=== PATIENT | female | born 1985 | race Caucasian/White ===

== ENCOUNTER 2024-11-19 07:26 | Emergency (ER) | payer OTHER, BC, SELFPAY ==
[2024-11-19 07:27] VITALS: BP 155/87; PULSE 100; RESP 20; TEMP 36.4; O2SAT 99; BMI 65.1
--- NOTE | 2024-11-19 07:38 | RAD_ITS ---
EXAM: XR LEFT KNEE COMPLETE, 4 OR MORE VIEWS CLINICAL INDICATION: injury/pain TECHNIQUE: Four or more views of the left knee. COMPARISON: No relevant prior studies available. FINDINGS: BONES/JOINTS: Unremarkable. No acute fracture. No subluxation. Normal alignment. Preservation of the joint space. No sclerotic or destructive changes observed. SOFT TISSUES: Unremarkable. No soft tissue swelling or gas. No radiopaque foreign body. RAD/Knee 4 or More Views IMPRESSION: Negative left knee x-rays. Electronically Signed: Malik Fair MD at 8:11 EST ,
--- NOTE | 2024-11-19 07:39 | EDS_ITS ---
HPI History of Present Illness Chief Complaint: Lower Extremity Injury Informant: patient Narrative Narrative: 38-year-old female injured her left knee yesterday. 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 Now this morning the pain is worse and she is having trouble bearing weight on it. She denies any other pain or injuries. She did not slip or fall or have any other mechanism but states she was at work when it happened. PFSH PFS Home Medications ?Medication ?Instructions ?Recorded ?Last Taken ?Type naproxen 500 mg tablet 500 mg PO BID #20 tabs 05/17/16 Unknown Rx Allergy/AdvReac Type Severity Reaction Status Date / Time No Known Allergies Allergy Verified 11/19/24 07:29 Social History Smoking Status: Current every day smoker tobacco type: cigarettes ROS ROS ED Constitutional Constitutional ED: Denies chills or fever(s) Musculoskeletal Musculoskeletal: Reports extremity pain; Denies neck pain Integumentary Denies Abrasions, rash or wounds Neurologic Neurologic: Denies paresthesias or weakness EXAM Physical Exam Const Vital Signs: 11/19/24 07:27 Temperature 97.6 F L Temperature Source Oral Pulse Rate 100 Respiratory Rate 20 H Blood Pressure 155/87 H Blood Pressure Mean 109 Pulse Ox 99 Oxygen Delivery Method Room Air Positive well nourished, well developed and obese General Appearance ED: well developed and NAD Nutritional Appearance: obese Neck full ROM and supple Cardio Cardio Narrative: Intact left posterior tibial pulse. Back/Spine normal ROM and normal to inspection Extremity normal to inspection and full ROM Extremity Narrative: Left lower extremity: Tenderness where the patient is having pain at the medial aspect of the patella. There is no definitive effusion but her obesity the limits detection of this clinically. She has full range of motion, extensor mechanism is intact, she can bend it, she states doing these motions does make it hurt some. There is no tenderness at the medial or lateral joint line. Negative Elana, negative posterior drawer without any pain with either. She has discomfort when stressing the MCL but there is no laxity, and she has no pain or laxity with stressing the LCL. There is no bony tenderness. Neuro oriented x3, no focal motor deficits and no sensory deficits noted Sensorium / Orientation: alert Psych mental status grossly normal and thought process normal Skin no wounds Rashes: no rashes MDM MDM MDM Narrative Medical decision making narrative: 4 view x-ray series of the left knee were obtained and are negative for acute fracture dislocation or large effusion on my interpretation. In my judgment this is more indicative of a sprain of the plica synovalis. Will give her an Erasmo wrap, advised anti-inflammatories, and I will give her lifting restrictions for work. Discharge Plan Triage Chief Complaint: Lower Extremity Injury ED Provider: Raul Simon Dx/Rx/DC Orders Clinical Impression: Sprain of left knee Instructions: ED Knee Sprain Prescriptions: No Action naproxen 500 MG tablet 500 mg PO BID Qty: 20 0RF Primary Care Provider: Care Physician,No Primary Referrals: [facility] [Group of Physicians] - As soon as possible Print Language: Marshallese Disposition Disposition: Home, Self Care
[2024-11-19] MEDS: Naproxen 500 MG Tablet PO (07:52)
== END 2024-11-19 08:18 | disposition home or self-care (01) ==
LOC: ED 08:01
PROVIDERS: Emergency Provider Emergency Medicine; Visit Provider Emergency Medicine
DX: S83.92XA Sprain of unspecified site of left knee, initial encounter (principal); F17.210 Nicotine dependence, cigarettes, uncomplicated; X58.XXXA Exposure to other specified factors, initial encounter; Y93.89 Activity, other specified; Y99.0 Civilian activity done for income or pay; Y92.89 Other specified places as the place of occurrence of the external cause
CPT/HCPCS: 73564; 99282